=== PATIENT | female | born 1990 | race Caucasian/White ===

== ENCOUNTER 2017-12-28 21:25 | Outpatient (CLI) | payer OTHER ==
[2017-12-28 22:47] LABS: ADD UMIC NO; UR ASCORBIC ACID NEGATIVE (NEGATIVE); UR BILIRUBIN (Dip) NEGATIVE (NEGATIVE); UR BLOOD (Dip) NEGATIVE (NEGATIVE); UR CLARITY CLEAR (CLEAR); UR COLOR STRAW (YELLOW); UR GLUCOSE (Dip) NEGATIVE (NEGATIVE); UR KETONES (Dip) NEGATIVE (NEGATIVE); UR LEUKOCYTE ESTERASE (Dip) NEGATIVE Leu/ul (NEGATIVE); UR NITRITE (Dip) NEGATIVE (NEGATIVE); UR SPECIFIC GRAVITY (Dip) 1.004 (1.003-1.030); UR TOTAL PROTEIN (Dip) NEGATIVE (NEGATIVE); UR UROBILINOGEN (Dip) NEGATIVE (NEGATIVE)
[2017-12-28 23:02] LABS: RUPTURE FETAL MEMBRANES NEGATIVE (NEGATIVE)
[2017-12-28 23:19] LABS: ADD MAN DIFF? NO
[2017-12-28 23:21] LABS: WHITE BLOOD COUNT 5.4 10^3/ul (4.8-10.8)
[2017-12-28 23:21] LABS: BASOPHILS % 0.2 % (0.0-2.0); EOSINOPHILS # 0.2 10^3/ul (0.0-0.5); EOSINOPHILS % 3.7 % (0.0-7.0); HEMATOCRIT 29.7 % (37.0-47.0); HEMOGLOBIN 10.2 g/dl (12.0-16.0); LYMPHOCYTES # 1.5 10^3/ul (0.8-2.9); MEAN CORPUSCULAR HEMOGLOBIN 31.3 pg (29.0-33.0); MEAN CORPUSCULAR HGB CONC 34.3 g/dl (32.0-37.0); MEAN CORPUSCULAR VOLUME 91.1 fl (82.0-101.0); MEAN PLATELET VOLUME 11.3 fl (7.4-10.4); MONOCYTE # 0.4 10^3/ul (0.3-0.9); MONOCYTES % 8.1 % (0.0-11.0); NEUTROPHIL # 3.3 10^3/ul (1.6-7.5); NEUTROPHILS % 60.4 % (39.0-77.0); PLATELET COUNT 222 10^3/UL (140-415); RED BLOOD COUNT 3.26 10^6/ul (4.20-5.40); RED CELL DISTRIBUTION WIDTH 13.1 % (11.5-14.5)
== END 2017-12-29 00:25 | disposition home or self-care (01) ==
LOC: OBT 21:25 → L-D 21:28
DX: O62.9 Abnormality of forces of labor, unspecified (principal); Z3A.33 33 weeks gestation of pregnancy
CPT/HCPCS: 36415; 76815; 76817; 76818; 81003; 84112; 85025

== ENCOUNTER 2018-01-08 17:31 | Inpatient (IN) | payer OTHER ==
[~2018-01-08 17:31] MED LIST: EPHEDrine SULFATE 50 MG/5 ML SYG
[2018-01-08 19:24] LABS: AMPHETAMINE/METHAMPHETAMINE Negative (NEGATIVE); BARBITURATES Negative (NEGATIVE); BENZODIAZEPINES Negative (NEGATIVE); CANNABINOIDS Negative (NEGATIVE); COCAINE Negative (NEGATIVE); OPIATES Negative (NEGATIVE)
[2018-01-08 19:30] LABS: RUPTURE FETAL MEMBRANES NEGATIVE (NEGATIVE)
[2018-01-08] MEDS: LACTATED RINGER'S 1,000 ML IV ×2 (20:36→21:31)
[2018-01-08 21:10] LABS: ADD MAN DIFF? NO
[2018-01-08 21:12] LABS: BASOPHILS % 0.2 % (0.0-2.0); EOSINOPHILS # 0.1 10^3/ul (0.0-0.5); EOSINOPHILS % 1.8 % (0.0-7.0); HEMATOCRIT 31.5 % (37.0-47.0); HEMOGLOBIN 10.7 g/dl (12.0-16.0); LYMPHOCYTES # 1.7 10^3/ul (0.8-2.9); LYMPHOCYTES % 28.7 % (15.0-51.0); MEAN CORPUSCULAR HEMOGLOBIN 30.7 pg (29.0-33.0); MEAN CORPUSCULAR VOLUME 90.3 fl (82.0-101.0); MEAN PLATELET VOLUME 11.8 fl (7.4-10.4); MONOCYTE # 0.5 10^3/ul (0.3-0.9); MONOCYTES % 7.7 % (0.0-11.0); NEUTROPHIL # 3.6 10^3/ul (1.6-7.5); NEUTROPHILS % 61.3 % (39.0-77.0); PLATELET COUNT 235 10^3/UL (140-415); RED BLOOD COUNT 3.49 10^6/ul (4.20-5.40); RED CELL DISTRIBUTION WIDTH 13.2 % (11.5-14.5)
[2018-01-08 21:37] LABS: ALANINE AMINOTRANSFERASE 26 IU/L (13-69); ALBUMIN 3.7 g/dl (3.3-4.9); ALBUMIN/GLOBULIN RATIO 0.86; ALKALINE PHOSPHATASE 147 IU/L (42-121); ANION GAP 10 (8-16); ASPARTATE AMINO TRANSFERASE 23 IU/L (15-46); BILIRUBIN,INDIRECT 0.3 mg/dl (0-1.1); BILIRUBIN,TOTAL 0.3 mg/dl (0.2-1.3); BLOOD UREA NITROGEN 10 mg/dl (7-20); CALCIUM 9.3 mg/dl (8.4-10.2); CARBON DIOXIDE 20 mmol/L (21-31); CHLORIDE 110 mmol/L (97-110); CREATININE 0.53 mg/dl (0.44-1.00); GLUCOSE 76 mg/dl (70-220); POTASSIUM 3.7 mmol/L (3.5-5.1); SODIUM 136 mmol/L (135-144)
[2018-01-08 21:38] LABS: URIC ACID 6.3 mg/dl (3.1-7.9)
[2018-01-08 22:18] LABS: ADD UMIC NO; UR ASCORBIC ACID NEGATIVE (NEGATIVE); UR BILIRUBIN (Dip) NEGATIVE (NEGATIVE); UR BLOOD (Dip) NEGATIVE (NEGATIVE); UR CLARITY CLEAR (CLEAR); UR COLOR STRAW (YELLOW); UR GLUCOSE (Dip) NEGATIVE (NEGATIVE); UR KETONES (Dip) NEGATIVE (NEGATIVE); UR LEUKOCYTE ESTERASE (Dip) NEGATIVE Leu/ul (NEGATIVE); UR NITRITE (Dip) NEGATIVE (NEGATIVE); UR SPECIFIC GRAVITY (Dip) 1.005 (1.003-1.030); UR TOTAL PROTEIN (Dip) NEGATIVE (NEGATIVE); UR UROBILINOGEN (Dip) NEGATIVE (NEGATIVE)
[2018-01-08] MEDS: BETAMET NA PHOS/AC(6 MG/ML) 5ML INJ IM (23:25)
[2018-01-08] MEDS ORDERED: MISOPROSTOL 200 MCG TAB PR (23:30)
[2018-01-08] MEDS ORDERED: CARBOPROST 250 MCG INJ IM (23:30)
[2018-01-08] MEDS ORDERED: OXYTOCIN 30 UNITS/LR 500 ML IV ×2 (23:30→23:40)
[2018-01-08] MEDS ORDERED: METHYLERGONOVINE 0.2 MG INJ IM (23:30)
[2018-01-08 23:32] LABS: INR 0.87; PROTIME 11.9 Sec (11.9-14.9); PT RATIO 0.9
[2018-01-08 23:33] LABS: PARTIAL THROMBOPLASTIN TIME 29.8 Sec (25.0-35.0)
[2018-01-08] MEDS: MAGNESIUM SULFATE 4 GM/100 ML 100 ML IV (23:36)
[2018-01-08] MEDS ORDERED: AMPICILLIN 2 GM/NS (PMX) 100 ML (23:37)
[2018-01-08] MEDS ORDERED: morphine SULFATE/PF (10 MG/10 ML) INJ (23:40)
[2018-01-08] MEDS ORDERED: OXYTOCIN 10 UNIT INJ (23:40)
[2018-01-08] MEDS ORDERED: BUPIVACAINE 0.75%/DEXT (SPINAL) 2 ML INJ (23:41)
[2018-01-08] MEDS: AMPICILLIN 2 GM/NS (PMX) 100 ML IVPB (23:43)
[2018-01-08] MEDS: FAMOTIDINE 20 MG INJ IV (23:49)
[2018-01-08] MEDS: ONDANSETRON 4 MG INJ IV (23:49)
[2018-01-08] MEDS: METOCLOPRAMIDE 10 MG INJ IV (23:49)
[2018-01-09 00:07] LABS: HEPATITIS B SURFACE ANTIGEN NEGATIVE (NEGATIVE)
[2018-01-09] MEDS: OXYTOCIN 30 UNITS/LR 500 ML IV ×3 (01:11→11:26)
[2018-01-09] MEDS ORDERED: HYDROmorphONE 1 MG/5 ML IV SYRINGE IV ×3 (01:30)
[2018-01-09] MEDS ORDERED: ZOLPIDEM 5 MG TAB PO (01:30)
[2018-01-09] MEDS ORDERED: OXYTOCIN 30 UNITS/LR 500 ML IV (01:30)
[2018-01-09] MEDS ORDERED: CARBOPROST 250 MCG INJ IM (01:30)
[2018-01-09] MEDS ORDERED: LABETALOL HCL 20MG INJ IV ×2 (01:30→03:00)
[2018-01-09] MEDS ORDERED: hydrALAzine 20 MG INJ IV ×2 (01:30→03:00)
[2018-01-09] MEDS ORDERED: CEFAZOLIN 2 GM/50 ML (PMX) 50 ML IV (01:30)
[2018-01-09] MEDS ORDERED: HYDROmorphONE 0.5 MG/0.5 ML SYG IV ×2 (01:30)
[2018-01-09] MEDS ORDERED: KETOROLAC 30 MG INJ IV (01:30)
[2018-01-09] MEDS ORDERED: CA GLUCONATE (GM) 10% 10ML INJ IV (01:30)
[2018-01-09] MEDS ORDERED: ONDANSETRON 4 MG INJ IV (01:30)
[2018-01-09] MEDS ORDERED: MISOPROSTOL 200 MCG TAB PR (01:30)
[2018-01-09] MEDS ORDERED: NALOXONE (0.4 MG/ML) INJ IV (01:30)
[2018-01-09] MEDS ORDERED: DIPHENHYDRAMINE 50 MG INJ IV (01:30)
[2018-01-09] MEDS ORDERED: FENTAnyl 50 MCG/ML VIAL IV (01:30)
[2018-01-09] MEDS: MAGNESIUM SULFATE 20 GM/500 ML 500 ML IV ×4 (01:38→20:49)
[2018-01-09] MEDS: DIPHENHYDRAMINE 50 MG INJ IV ×2 (02:10→03:58)
[2018-01-09] MEDS: CEFAZOLIN 2 GM/50 ML (PMX) 50 ML IV (02:22)
[2018-01-09] MEDS: FENTAnyl 50 MCG/ML VIAL IV ×2 (02:51→03:59)
[2018-01-09] MEDS: ONDANSETRON 4 MG INJ IV (02:55)
[2018-01-09] MEDS: LACTATED RINGER'S 1,000 ML IV ×3 (04:30→21:16)
[2018-01-09] MEDS: IBUPROFEN 600 MG TAB PO ×3 (06:00→19:30)
[2018-01-09] MEDS: LANOLIN 7 GM TUBE TOP (08:25)
[2018-01-09] MEDS: CEFAZOLIN 2 GM/50 ML (PMX) 50 ML IVPB ×2 (08:25→16:51)
[2018-01-09 08:58] LABS: MAGNESIUM 4.2 mg/dl (1.7-2.5)
[2018-01-09] MEDS: SENNA/DOCUSATE NA (8.6MG/50MG) TAB PO ×2 (09:00→21:15)
[2018-01-09 13:00] LABS: MAGNESIUM 4.7 mg/dl (1.7-2.5)
[2018-01-09] MEDS: KETOROLAC 30 MG INJ IV (15:34)
[2018-01-09 18:43] LABS: MAGNESIUM 5.3 mg/dl (1.7-2.5)
[2018-01-09 20:40] LABS: RAPID PLASMA REAGIN NONREACTIVE (NR)
[2018-01-09 20:42] LABS: RAPID PLASMA REAGIN NONREACTIVE (NR)
[2018-01-10] MEDS: CEFAZOLIN 2 GM/50 ML (PMX) 50 ML IVPB (00:13)
[2018-01-10] MEDS: KETOROLAC 30 MG INJ IV (00:13)
[2018-01-10] MEDS: LACTATED RINGER'S 1,000 ML IV (03:51)
[2018-01-10] MEDS ORDERED: LEVOTHYROXINE 125 MCG TAB PO (06:00)
[2018-01-10] MEDS ORDERED: LEVOTHYROXINE 100 MCG TAB PO (06:00)
[2018-01-10] MEDS ORDERED: LEVOTHYROXINE 50 MCG TAB PO (06:00)
[2018-01-10] MEDS: IBUPROFEN 600 MG TAB PO ×6 (06:35→23:33)
[2018-01-10] MEDS: SYNTHROID 200 MCG PO (06:36)
[2018-01-10] MEDS: LEVOTHYROXINE 50 MCG TAB PO (06:36)
[2018-01-10] MEDS: SENNA/DOCUSATE NA (8.6MG/50MG) TAB PO ×2 (09:07→21:24)
[2018-01-10 10:01] LABS: ADD MAN DIFF? NO
[2018-01-10 10:02] LABS: WHITE BLOOD COUNT 8.9 10^3/ul (4.8-10.8)
[2018-01-10 10:02] LABS: BASOPHILS % 0.1 % (0.0-2.0); EOSINOPHILS % 0.3 % (0.0-7.0); HEMATOCRIT 25.6 % (37.0-47.0); HEMOGLOBIN 8.8 g/dl (12.0-16.0); LYMPHOCYTES # 1.9 10^3/ul (0.8-2.9); MEAN CORPUSCULAR HEMOGLOBIN 30.8 pg (29.0-33.0); MEAN CORPUSCULAR HGB CONC 34.4 g/dl (32.0-37.0); MEAN CORPUSCULAR VOLUME 89.5 fl (82.0-101.0); MEAN PLATELET VOLUME 11.4 fl (7.4-10.4); MONOCYTE # 0.6 10^3/ul (0.3-0.9); MONOCYTES % 6.5 % (0.0-11.0); NEUTROPHIL # 6.4 10^3/ul (1.6-7.5); NEUTROPHILS % 71.5 % (39.0-77.0); PLATELET COUNT 221 10^3/UL (140-415); RED BLOOD COUNT 2.86 10^6/ul (4.20-5.40); RED CELL DISTRIBUTION WIDTH 13.1 % (11.5-14.5)
[2018-01-10] MEDS: FERROUS SULFATE (EC) 325 MG TAB PO ×2 (12:57→21:25)
[2018-01-10] MEDS: OXYCODONE/ACETAMINOPHEN (5/325) TAB PO (14:03)
[2018-01-11] MEDS: IBUPROFEN 600 MG TAB PO ×4 (05:41→23:42)
[2018-01-11] MEDS: SYNTHROID 200 MCG PO (06:00)
[2018-01-11] MEDS: LEVOTHYROXINE 125 MCG TAB PO (06:35)
[2018-01-11] MEDS: OXYCODONE/ACETAMINOPHEN (5/325) TAB PO ×2 (07:35→14:33)
[2018-01-11] MEDS: SENNA/DOCUSATE NA (8.6MG/50MG) TAB PO ×2 (09:03→21:20)
[2018-01-11] MEDS: FERROUS SULFATE (EC) 325 MG TAB PO ×2 (09:03→21:20)
[2018-01-11 16:00] LABS: ADD MAN DIFF? NO
[2018-01-11 16:01] LABS: BASOPHILS % 0.2 % (0.0-2.0); EOSINOPHILS # 0.2 10^3/ul (0.0-0.5); EOSINOPHILS % 2.1 % (0.0-7.0); HEMATOCRIT 26.1 % (37.0-47.0); HEMOGLOBIN 8.8 g/dl (12.0-16.0); LYMPHOCYTES # 1.8 10^3/ul (0.8-2.9); MEAN CORPUSCULAR HGB CONC 33.7 g/dl (32.0-37.0); MEAN CORPUSCULAR VOLUME 94.9 fl (82.0-101.0); MONOCYTE # 0.6 10^3/ul (0.3-0.9); NEUTROPHIL # 6.3 10^3/ul (1.6-7.5); NEUTROPHILS % 70.1 % (39.0-77.0); PLATELET COUNT 186 10^3/UL (140-415); RED BLOOD COUNT 2.75 10^6/ul (4.20-5.40); RED CELL DISTRIBUTION WIDTH 13.5 % (11.5-14.5)
[2018-01-11 16:29] LABS: ALANINE AMINOTRANSFERASE 27 IU/L (13-69); ALBUMIN 3.5 g/dl (3.3-4.9); ALBUMIN/GLOBULIN RATIO 0.89; ALKALINE PHOSPHATASE 97 IU/L (42-121); ANION GAP 14 (8-16); ASPARTATE AMINO TRANSFERASE 24 IU/L (15-46); BILIRUBIN,INDIRECT 0.3 mg/dl (0-1.1); BILIRUBIN,TOTAL 0.3 mg/dl (0.2-1.3); BLOOD UREA NITROGEN 11 mg/dl (7-20); CALCIUM 8.8 mg/dl (8.4-10.2); CARBON DIOXIDE 22 mmol/L (21-31); CHLORIDE 108 mmol/L (97-110); CREATININE 0.61 mg/dl (0.44-1.00); GLUCOSE 113 mg/dl (70-220); POTASSIUM 3.8 mmol/L (3.5-5.1); SODIUM 140 mmol/L (135-144); TOTAL PROTEIN 7.4 g/dl (6.1-8.1); URIC ACID 5.6 mg/dl (3.1-7.9)
[2018-01-11 16:31] LABS: INR 0.82; PROTIME 11.3 Sec (11.9-14.9); PT RATIO 0.9
[2018-01-11 16:32] LABS: PARTIAL THROMBOPLASTIN TIME 28.7 Sec (25.0-35.0)
[2018-01-11 16:58] LABS: FIBRIN SPLIT PRODUCT >10 and <40 ug/ml (<10)
[2018-01-11 17:21] LABS: FREE T3 2.27 pg/ml (2.77-5.27)
[2018-01-11 19:18] LABS: ADD UMIC YES; UR ASCORBIC ACID NEGATIVE (NEGATIVE); UR BILIRUBIN (Dip) NEGATIVE (NEGATIVE); UR BLOOD (Dip) 2+ mg/dL (NEGATIVE); UR CLARITY CLEAR (CLEAR); UR COLOR STRAW (YELLOW); UR GLUCOSE (Dip) NEGATIVE (NEGATIVE); UR KETONES (Dip) NEGATIVE (NEGATIVE); UR LEUKOCYTE ESTERASE (Dip) NEGATIVE Leu/ul (NEGATIVE); UR NITRITE (Dip) NEGATIVE (NEGATIVE); UR RBC 0 /HPF (0-5); UR SPECIFIC GRAVITY (Dip) 1.006 (1.003-1.030); UR TOTAL PROTEIN (Dip) NEGATIVE (NEGATIVE); UR UROBILINOGEN (Dip) NEGATIVE (NEGATIVE); UR WBC 1 /HPF (0-5)
[2018-01-12] MEDS: OXYCODONE/ACETAMINOPHEN (5/325) TAB PO ×3 (00:41→15:41)
[2018-01-12] MEDS: IBUPROFEN 600 MG TAB PO ×3 (05:37→17:43)
[2018-01-12] MEDS: LEVOTHYROXINE 125 MCG TAB PO (05:38)
[2018-01-12] MEDS: SENNA/DOCUSATE NA (8.6MG/50MG) TAB PO (10:03)
[2018-01-12] MEDS: FERROUS SULFATE (EC) 325 MG TAB PO (10:03)
== END 2018-01-12 20:00 | disposition home or self-care (01) | DRG 766 ==
LOC: OBT 17:31 → L-D 01-09 00:05 → PP1 01-09 04:48 → OBT 23:22 → L-D 22:15
PROC: 10D00Z1 Extraction of Products of Conception, Low, Open Approach (ICD-10-PCS; principal; 2018-01-08)
DX: O14.14 Severe pre-eclampsia complicating childbirth (principal); O34.211 Maternal care for low transverse scar from previous cesarean delivery; O60.14X0 Preterm labor third trimester with preterm delivery third trimester, not applicable or unspecified; O99.284 Endocrine, nutritional and metabolic diseases complicating childbirth; E03.9 Hypothyroidism, unspecified; O99.214 Obesity complicating childbirth; O90.81 Anemia of the puerperium; R00.2 Palpitations; O9A.23 Injury, poisoning and certain other consequences of external causes complicating the puerperium; E66.9 Obesity, unspecified; T38.1X5A Adverse effect of thyroid hormones and substitutes, initial encounter; Y92.238 Other place in hospital as the place of occurrence of the external cause; Z3A.35 35 weeks gestation of pregnancy; Z37.0 Single live birth; Z68.38 Body mass index [BMI] 38.0-38.9, adult
CPT/HCPCS: 36415; 76815; 76818; 80053; 80307; 81001; 81003; 83735; 84112; 84443; 84481; 84560; 85025; 85362; 85384; 85610; 85730; 86592; 86850; 86900; 86901; 86920; 87340; 93005; 96360; 99464

== ENCOUNTER 2018-02-14 10:18 | Observation (INO) | payer OTHER ==
[2018-02-14] MEDS: SOD CHLORIDE 0.9% 1,000 ML IV ×2 (10:50→13:27)
[2018-02-14 11:04] LABS: ADD MAN DIFF? NO
[2018-02-14 11:07] LABS: WHITE BLOOD COUNT 4.7 10^3/ul (4.8-10.8)
[2018-02-14 11:07] LABS: BASOPHILS % 0.4 % (0.0-2.0); EOSINOPHILS # 0.1 10^3/ul (0.0-0.5); EOSINOPHILS % 2.1 % (0.0-7.0); HEMATOCRIT 33.5 % (37.0-47.0); HEMOGLOBIN 10.9 g/dl (12.0-16.0); IMMATURE GRANS #M 0.01 10^3/ul; IMMATURE GRANS % (M) 0.2 %; LYMPHOCYTES # 1.8 10^3/ul (0.8-2.9); LYMPHOCYTES % 37.4 % (15.0-51.0); MEAN CORPUSCULAR HEMOGLOBIN 28.5 pg (29.0-33.0); MEAN CORPUSCULAR HGB CONC 32.5 g/dl (32.0-37.0); MEAN CORPUSCULAR VOLUME 87.7 fl (82.0-101.0); MEAN PLATELET VOLUME 10.5 fl (7.4-10.4); MONOCYTE # 0.4 10^3/ul (0.3-0.9); MONOCYTES % 7.4 % (0.0-11.0); NEUTROPHIL # 2.5 10^3/ul (1.6-7.5); NEUTROPHILS % 52.5 % (39.0-77.0); PLATELET COUNT 304 10^3/UL (140-415); RED BLOOD COUNT 3.82 10^6/ul (4.20-5.40); RED CELL DISTRIBUTION WIDTH 12.2 % (11.5-14.5)
[2018-02-14 11:27] LABS: ALANINE AMINOTRANSFERASE 31 IU/L (13-69); ALBUMIN/GLOBULIN RATIO 0.88; ALKALINE PHOSPHATASE 53 IU/L (42-121); ANION GAP 16 (8-16); ASPARTATE AMINO TRANSFERASE 28 IU/L (15-46); BILIRUBIN,INDIRECT 0.2 mg/dl (0-1.1); BILIRUBIN,TOTAL 0.2 mg/dl (0.2-1.3); BLOOD UREA NITROGEN 12 mg/dl (7-20); CALCIUM 9.5 mg/dl (8.4-10.2); CARBON DIOXIDE 24 mmol/L (21-31); CHLORIDE 107 mmol/L (97-110); CREATININE 0.72 mg/dl (0.44-1.00); GLUCOSE 89 mg/dl (70-220); LIPASE 43 U/L (23-300); SODIUM 143 mmol/L (135-144); TOTAL PROTEIN 8.5 g/dl (6.1-8.1)
[2018-02-14] MEDS: ONDANSETRON 4 MG INJ IV (11:36)
[2018-02-14] MEDS: KETOROLAC 30 MG INJ IV (11:39)
[2018-02-14 12:18] LABS: ADD MAN DIFF? NO
[2018-02-14 12:20] LABS: WHITE BLOOD COUNT 4.5 10^3/ul (4.8-10.8)
[2018-02-14 12:20] LABS: BASOPHILS % 0.2 % (0.0-2.0); EOSINOPHILS # 0.1 10^3/ul (0.0-0.5); HEMATOCRIT 29.9 % (37.0-47.0); HEMOGLOBIN 9.6 g/dl (12.0-16.0); IMMATURE GRANS #M 0.02 10^3/ul; IMMATURE GRANS % (M) 0.4 %; LYMPHOCYTES # 1.9 10^3/ul (0.8-2.9); LYMPHOCYTES % 42.4 % (15.0-51.0); MEAN CORPUSCULAR HEMOGLOBIN 28.5 pg (29.0-33.0); MEAN CORPUSCULAR HGB CONC 32.1 g/dl (32.0-37.0); MEAN CORPUSCULAR VOLUME 88.7 fl (82.0-101.0); MEAN PLATELET VOLUME 10.3 fl (7.4-10.4); MONOCYTE # 0.4 10^3/ul (0.3-0.9); MONOCYTES % 8.6 % (0.0-11.0); NEUTROPHIL # 2.1 10^3/ul (1.6-7.5); NEUTROPHILS % 46.4 % (39.0-77.0); PLATELET COUNT 240 10^3/UL (140-415); RED BLOOD COUNT 3.37 10^6/ul (4.20-5.40); RED CELL DISTRIBUTION WIDTH 12.2 % (11.5-14.5)
[2018-02-14] MEDS: CEFAZOLIN 1 GM/50 ML (PMX) 50 ML IVPB (14:28)
[2018-02-14] MEDS ORDERED: ONDANSETRON 4 MG INJ IV (14:30)
[2018-02-14 14:37] LABS: ADD MAN DIFF? NO
[2018-02-14 14:47] LABS: BASOPHILS % 0.2 % (0.0-2.0); EOSINOPHILS # 0.1 10^3/ul (0.0-0.5); EOSINOPHILS % 2.4 % (0.0-7.0); HEMATOCRIT 30.1 % (37.0-47.0); HEMOGLOBIN 9.9 g/dl (12.0-16.0); IMMATURE GRANS #M 0.01 10^3/ul; IMMATURE GRANS % (M) 0.2 %; LYMPHOCYTES # 1.9 10^3/ul (0.8-2.9); LYMPHOCYTES % 45.2 % (15.0-51.0); MEAN CORPUSCULAR HEMOGLOBIN 29.6 pg (29.0-33.0); MEAN CORPUSCULAR HGB CONC 32.9 g/dl (32.0-37.0); MEAN CORPUSCULAR VOLUME 90.1 fl (82.0-101.0); MEAN PLATELET VOLUME 10.5 fl (7.4-10.4); MONOCYTE # 0.4 10^3/ul (0.3-0.9); MONOCYTES % 8.5 % (0.0-11.0); NEUTROPHIL # 1.8 10^3/ul (1.6-7.5); NEUTROPHILS % 43.5 % (39.0-77.0); PLATELET COUNT 269 10^3/UL (140-415); RED BLOOD COUNT 3.34 10^6/ul (4.20-5.40)
[2018-02-14 14:47] LABS: WHITE BLOOD COUNT 4.1 10^3/ul (4.8-10.8)
[2018-02-14 15:07] LABS: INR 0.94; PROTIME 12.7 Sec (11.9-14.9)
[2018-02-14 15:08] LABS: PARTIAL THROMBOPLASTIN TIME 30.9 Sec (25.0-35.0)
[2018-02-14] MEDS: TRANEXAMIC ACID 1,000 MG in DEXTROSE 5% 100 ML IV (15:41)
[2018-02-14] MEDS: LEVOTHYROXINE 125 MCG TAB PO (15:41)
[2018-02-15] MEDS: ACETAMINOPHEN 325 MG TAB PO (03:58)
[2018-02-15] MEDS: FERROUS SULFATE (EC) 325 MG TAB PO (08:26)
[2018-02-15 11:19] LABS: ADD MAN DIFF? NO
[2018-02-15 11:21] LABS: BASOPHILS % 0.4 % (0.0-2.0); EOSINOPHILS # 0.1 10^3/ul (0.0-0.5); EOSINOPHILS % 3.1 % (0.0-7.0); HEMATOCRIT 28.4 % (37.0-47.0); HEMOGLOBIN 9.2 g/dl (12.0-16.0); LYMPHOCYTES # 1.8 10^3/ul (0.8-2.9); LYMPHOCYTES % 40.7 % (15.0-51.0); MEAN CORPUSCULAR HEMOGLOBIN 28.8 pg (29.0-33.0); MEAN CORPUSCULAR HGB CONC 32.4 g/dl (32.0-37.0); MEAN CORPUSCULAR VOLUME 88.8 fl (82.0-101.0); MEAN PLATELET VOLUME 10.5 fl (7.4-10.4); MONOCYTE # 0.3 10^3/ul (0.3-0.9); MONOCYTES % 7.1 % (0.0-11.0); NEUTROPHIL # 2.2 10^3/ul (1.6-7.5); NEUTROPHILS % 48.5 % (39.0-77.0); PLATELET COUNT 282 10^3/UL (140-415); RED CELL DISTRIBUTION WIDTH 12.1 % (11.5-14.5)
[2018-02-15 11:21] LABS: WHITE BLOOD COUNT 4.5 10^3/ul (4.8-10.8)
== END 2018-02-15 14:00 | disposition home or self-care (01) ==
LOC: FTE 10:18 → PP2 14:12
DX: N93.9 Abnormal uterine and vaginal bleeding, unspecified (principal); D64.9 Anemia, unspecified; E03.9 Hypothyroidism, unspecified
CPT/HCPCS: 36415; 76856; 80053; 81025; 83690; 84702; 85025; 85610; 85730; 86850; 86900; 86901; 96361; 96374; 99285-25; G0378